=== PATIENT | male | born 1940 | race Caucasian/White ===

== ENCOUNTER 2019-04-02 07:19 | Day surgery (SDC) | payer OTHER ==
[2019-04-02] MEDS ORDERED: PROPOFOL 20 ML ONE ×4 (07:49→07:52)
[2019-04-02] MEDS ORDERED: LIDOCAINE HCL/PF 2% SDV 5ML VIAL ONE (07:52)
[2019-04-02 09:34] VITALS: TEMP 97.9
[2019-04-02 10:18] VITALS: BP 126/82; PULSE 81
--- NOTE | 2019-04-09 12:01 | PATH ---
Surgical Pathology Report Patient Name: ZAK TORRES [facility]. Rec. #: [id number] /Age/Gender: 1940 (Age: 79) / M Account: [id number] Location: [facility] Taken: 04/02/2019 Received: 04/02/2019 Reported: 04/09/2019 Physicians: Kvng Lopez M.D. Specimen(s) Received A: SECOND PORTION DUODENUM B: ANTRUM C: POLYP RIGHT COLON D: POLYP LEFT COLON Clinical History Gastritis, hx polyps Postoperative diagnosis: Gastritis with erosions, duodenitis, diverticulosis, colon, polyps Final Diagnosis A. SECOND PORTION DUODENUM, BIOPSY: MODERATE CHRONIC DUODENITIS. B. GASTRIC ANTRUM, BIOPSY: SEVERE CHRONIC ACTIVE GASTRITIS. IMMUNOSTAIN SHOWS NUMEROUS H PYLORI ORGANISMS. PORTION OF DUODENAL MUCOSA SHOWING MODERATE CHRONIC DUODENITIS. C. RIGHT COLON, POLYP, BIOPSY: TUBULAR ADENOMA. D. LEFT COLON, POLYP, BIOPSY: TUBULAR ADENOMA. Electronically Signed Virginia Hearn M.D. Gross Description Received in formalin, labeled "second portion duodenum" are 3 shah, irregular portions of soft tissue, ranging from 0.2-0.4 cm. in greatest dimension. The specimens are submitted in toto in one cassette. B. Received in formalin, labeled "gastric antrum" are 2 shah, irregular portions of soft tissue , each measuring], 0.3 cm. in greatest dimension. The specimens are submitted in toto in one cassette. C. Received in formalin, labeled "polyp, right colon" is a shah, irregular portion of soft tissue measuring 0.3 cm. in greatest dimension. The specimen is submitted in toto in one cassette. D. Received in formalin, labeled "polyp, left colon" is a shah, irregular portion of soft tissue measuring 0.5 cm. in greatest dimension. The specimen is submitted in toto in one cassette. AE/04/03/2019 ebram04/03/2019
== END 2019-04-02 10:05 | disposition home or self-care (01) ==
LOC: FASU-ENDO 07:19
PROVIDERS: ATTEND Internal Medicine Gastroenterology
PROC: 0DBM8ZX Excision of Descending Colon, Via Natural or Artificial Opening Endoscopic, Diagnostic (ICD-10-PCS; 2019-04-02)
PROC: 0DB98ZX Excision of Duodenum, Via Natural or Artificial Opening Endoscopic, Diagnostic (ICD-10-PCS; 2019-04-02)
PROC: 0DB68ZX Excision of Stomach, Via Natural or Artificial Opening Endoscopic, Diagnostic (ICD-10-PCS; 2019-04-02)
PROC: 0DBK8ZX Excision of Ascending Colon, Via Natural or Artificial Opening Endoscopic, Diagnostic (ICD-10-PCS; principal; 2019-04-02 08:49)
DX: Z86.010 Personal history of colon polyps (principal); K57.30 Diverticulosis of large intestine without perforation or abscess without bleeding; D12.2 Benign neoplasm of ascending colon; D12.4 Benign neoplasm of descending colon; B96.81 Helicobacter pylori [H. pylori] as the cause of diseases classified elsewhere; K29.80 Duodenitis without bleeding; K29.50 Unspecified chronic gastritis without bleeding
CPT/HCPCS: 88305-TC; 88342-TC

== ENCOUNTER 2023-03-27 21:35 | Emergency (ER) | payer OTHER ==
[2023-03-27] MEDS ORDERED: predniSONE 20 MG TABLET (UD) PO ONE (21:46)
[2023-03-27] MEDS ORDERED: diphenhydrAMINE HCL 50 MG CAPSULE PO ONE ×2 (21:46→23:39)
[2023-03-27] MEDS ORDERED: predniSONE 20 MG TABLET (UD) ONE (21:50)
[2023-03-27] MEDS ORDERED: diphenhydrAMINE HCL 50 MG CAPSULE ONE (21:51)
[2023-03-27 22:02] VITALS: PULSE 90; TEMP 98
[2023-03-27 22:05] VITALS: BP 137/70; RESP 21
[2023-03-27] MEDS ORDERED: FAMOTIDINE 10 MG TABLET PO ONE (22:07)
[2023-03-27] MEDS ORDERED: FAMOTIDINE 20 MG TABLET ONE (22:09)
[2023-03-27] MEDS ORDERED: diphenhydrAMINE HCL 25 MG CAPSULE (FP) PO ONE (23:40)
== END 2023-03-27 23:41 | disposition home or self-care (01) ==
LOC: FER 21:35
DX: R22.33 Localized swelling, mass and lump, upper limb, bilateral (principal); T63.461A Toxic effect of venom of wasps, accidental (unintentional), initial encounter
CPT/HCPCS: 99283-25

== ENCOUNTER 2023-04-02 03:42 | Emergency (ER) | payer OTHER ==
[2023-04-02] MEDS ORDERED: DEXAMETHASONE LIQUID 0.5 MG/5 ML PO ONE (03:45)
[2023-04-02] MEDS ORDERED: DALBAVANCIN HCL 1,500 MG in DEXTROSE 5%-WATER - 500 ML IVPB ONE (03:51)
[2023-04-02] MEDS ORDERED: DALBAVANCIN HCL 500 MG VIAL (RESTRICTED TO ID ONLY) IVPB ONE (03:55)
[2023-04-02 04:12] VITALS: BP 144/84; PULSE 73; RESP 16; TEMP 98.5
[2023-04-02 05:34] LABS: BASO % 0.4 % (0-2.0); EOS % 4.5 % (0-4.5); HEMATOCRIT 48.1 % (35.4-49); HEMOGLOBIN 16.1 GM/dL (11.7-16.9); LYMPH % 18.6 % (8-40); MCH 28.6 pg (25.7-33.7); MCHC 33.5 g/dl (32.0-35.9); MEAN CELL VOLUME 85.6 fl (80-96); MONO % 8.3 % (3.8-10.2); NEUT % 68.2 % (42.8-82.8); PLATELET COUNT 228 10^3/uL (134-434); RBC 5.62 M/mm3 (4.00-5.60); RDW 13.9 % (11.9-15.9); WHITE BLOOD COUNT 8.1 K/mm3 (4.0-10.0)
[2023-04-02 05:59] LABS: POTASSIUM 4.3 mmol/L (3.5-5.1)
[2023-04-02 06:01] LABS: CALCIUM 9.1 mg/dL (8.5-10.1)
[2023-04-02 06:02] LABS: ALBUMIN 4.2 g/dl (3.4-5.0); BLOOD UREA NITROGEN 29.2 mg/dL (7-18)
[2023-04-02 06:05] LABS: CREATININE 1.2 mg/dL (0.55-1.3)
[2023-04-02 06:07] LABS: BILIRUBIN,TOTAL 0.8 mg/dL (0.2-1); TOT PROT 7.8 g/dl (6.4-8.2)
== END 2023-04-02 04:38 | disposition home or self-care (01) ==
LOC: FER 03:42
DX: R22.0 Localized swelling, mass and lump, head (principal); L29.9 Pruritus, unspecified; L03.811 Cellulitis of head [any part, except face]
CPT/HCPCS: 36415; 80053; 85025; 99284-25; J0875

== ENCOUNTER 2023-09-14 16:18 | Emergency (ER) | payer OTHER ==
[2023-09-14 16:26] VITALS: BP 167/82; PULSE 64; RESP 18; TEMP 97.8
[2023-09-14] MEDS ORDERED: ALBUTEROL SO4 2.5/IPRATROPIUM 0.5 INH SOL 3 ML VIAL.NEB. NEB ONE (16:37)
[2023-09-14] MEDS: ALBUTEROL SO4 2.5/IPRATROPIUM 0.5 INH SOL 3 ML VIAL.NEB. NEB ONE (16:40)
[2023-09-14] MEDS: ALBUTEROL SO4 2.5/IPRATROPIUM 0.5 INH SOL 3 ML VIAL.NEB. NEB SCH (17:40)
== END 2023-09-14 18:00 | disposition home or self-care (01) ==
LOC: FER 16:18
PROC: 3E0F7GC Introduction of Other Therapeutic Substance into Respiratory Tract, Via Natural or Artificial Opening (ICD-10-PCS; principal; 2023-09-14)
PROC: 3E0F7GC Introduction of Other Therapeutic Substance into Respiratory Tract, Via Natural or Artificial Opening (ICD-10-PCS; 2023-09-14)
DX: R05.9 Cough, unspecified (principal); R09.81 Nasal congestion; R09.82 Postnasal drip; J34.89 Other specified disorders of nose and nasal sinuses; J06.9 Acute upper respiratory infection, unspecified; Z20.822 Contact with and (suspected) exposure to COVID-19
CPT/HCPCS: 0241U-QW; 71046-TC-FY; 99284-25